=== PATIENT | female | born 1940 | race Caucasian/White ===

== ENCOUNTER 2024-03-25 14:52 | Inpatient (IN) | payer MEDICARE, BC, SELFPAY ==
[2024-03-24 11:55] VITALS: BP 127/95; BMI 22.0
[2024-03-24 12:17] LABS: % Basophils 0.8 % (0-2); % Eosinophils 2.9 % (0-6); % Immature Granulocytes 0.3 % (0-0.5); % Lymphocytes 24.8 % (20.5-51.1); % Neutrophils 61.2 % (42.2-75.2); Absolute Basophils 0.1 10^3/uL (0-0.2); Absolute Eosinophils 0.2 10^3/uL (0-0.7); Absolute Lymphocytes 1.6 10^3/uL (1.2-3.4); Absolute Monocytes 0.7 10^3/uL (0.1-0.6); Hematocrit 40.8 % (37.0-47.0); Hemoglobin 13.9 g/dL (12.0-16.0); Mean Corp Hgb Conc. 34.1 g/dL (33.0-37.0); Mean Corpuscular Hgb 29.6 pg (27.0-31.0); Mean Platelet Volume 9.6 fL (7.4-10.4); Nucleated Red Blood Cells % 0 %; Platelet Count 254 10^3/uL (130-400); Red Blood Cell Count 4.69 10^6/uL (4.20-5.40); Red Cell Dist. Width 13.9 % (11.5-14.5); Urine Albumin 1+ (Neg - Trace); Urine Bilirubin 1+ (Negative); Urine Color Yellow; Urine Glucose Negative (Negative); Urine Ketone 1+ (Negative); Urine Leukocyte 2+ (Negative); Urine Nitrite Negative (Negative); Urine Occult Blood 2+ (Negative); Urine Specific Gravity 1.025 (<1.030); Urine Urobilinogen 1+ (Neg - 1+); White Blood Cell Count 6.5 10^3/uL (4.8-10.8)
[2024-03-24 12:19] LABS: Urine Character Slightly Cloudy (Clear)
[2024-03-24 12:27] LABS: Urine Mucus Moderate
[2024-03-24 12:29] LABS: Urine Bacteria Moderate (Negative); Urine White Cell >100 /HPF (0-5)
[2024-03-24 12:32] LABS: ALT (SGPT) 24 U/L (0-35); AST (SGOT) 35 U/L (14-36); Albumin 4.5 g/dl (3.5-5.0); Alkaline Phosphatase 135 U/L (38-126); Blood Urea Nitrogen 19 mg/dl (7-17); Calcium 9.4 mg/dl (8.4-10.2); Carbon Dioxide 24 mmol/L (22-30); Chloride 104 mmol/L (98-107); Estimated Creatinine Clearance 34 ml/min; Glucose 124 mg/dl (70-99); Potassium 4.2 mmol/L (3.5-5.1); Sodium 142 mmol/L (135-145); Total Bilirubin 1.9 mg/dl (0.2-1.3); Total Protein 7.2 g/dl (6.3-8.2); eGFR > 60.00
--- NOTE | 2024-03-24 12:45 | ED.GENMED ---
History of Present Illness
General
Chief Complaint: Weakness
Source: family and ambulance crew
Exam Limitations: dementia
Time Seen by Provider: 03/24/24 12:01
Nursing documentation reviewed up to this point in time: agreed with
History of Present Illness
History of Present Illness:
83-year-old female with history dementia presenting to the emergency department via EMS from home due to generalized weakness and fall this morning. Patient unable to contribute much to history given history of dementia. According to patient's
she lives with�patient was walking using her walker from the bathroom back to the bedroom when she fell and struck her head on the hardwood floor. There was no loss of conscious. Patient did stay on the ground until EMS arrived.
Patient has been more weak than usual over the past 10 days per patient's . She did have a telehealth appointment with a doctor yesterday who prescribed her Macrobid for a suspected UTI.
Patient denies any chest pain, shortness of breath, cough or abdominal pain.
Past History
Past History
ED Past Medical History: HTN
ED Past Surgical History: None
Social History
Tobacco: Non-smoker
Alcohol: None
Review of Systems
Review of Systems
Allergies reviewed?: Yes
All Other Systems: ROS reviewed and negative except as documented in HPI and ROS
Phy Exam
Physical Exam
Physical Exam:
Vitals: Patient's vital signs are stable. Afebrile
General: Patient is frail appearing. No apparent distress.
Skin: Warm and dry.
Head: Normocephalic. Contusion to left frontal scalp.
Eyes: Sclera nonicteric. EOMs intact. No nystagmus.
Throat: Dry mucous membranes. Protecting airway
Neck: Normal ROM, no cervical spine tenderness, no meningismus. No midline spinal tenderness.
Cardiac: Regular rate and rhythm, no murmurs.
Pulm: Normal respiratory effort, no wheezes, rales, rhonchi heard on exam.
Abdomen: Abdomen soft. No abdominal tenderness. No rebound tenderness or guarding.
Extremities: Bilateral upper and lower extremities atraumatic and nontender with full range of motion. No evidence of cyanosis or edema. Palpable DP pulses bilaterally
Neuro: AAOx to person and place, not time. No focal neurologic deficits. Follows commands.
Psychiatric: Normal affect.
Course
Orders/Labs/Results
Orders:
Orders
03/24/24 11:51
Electrocardiogram (*1) Urgent
Reason for Study: Fatigue / Weakness
03/24/24 11:54
EKG- Treatment ONCE
03/24/24 12:07
Complete Blood Count/With Diff Urgent
Comprehensive Metabolic Panel Urgent
UA Reflex to Culture [Urinalysis Reflex To Culture] Urgent
Date Specimen was Collected: 03/24/24
Time Specimen was Collected: 11:54
Urine Microscopic Reflex Cult Urgent
Urine Culture Urgent
MARLEE Source: U
Specimen Description:
Date Specimen was Collected: 03/24/24
Time Specimen was Collected: 11:54
03/24/24 12:28
CT Head W/o Iv Contrast Urgent
Comment:
Reason For Exam: unwitnessed fall, head strike
0.9% Sodium Chloride 1000 ml [Nss] 1,000 ml IV BOLUS
03/24/24 12:29
Cervical Spine wo Contrast CT [CT Cervical Spine W/o Iv Contr] Urgent
Comment:
Reason For Exam: unwitnessed fall
03/24/24 12:45
COVID-19 Antigen Urgent
Source: Nasal Swab
Influenza A+B Rapid Molecular Urgent
MARLEE Source: Nasal Swab
Specimen Description:
03/24/24 14:37
CefTRIAXone [Rocephin] 1,000 mg IV NOW STA
03/24/24 14:55
Admit/Transfer Patient As Directed
Co-Sign Provider:
Level of Care: Observation services
Assign to:: Medical/Surgical
Physician / Group: alex
Diagnosis: metabolic encephelopathy uti
PRN Pain Medication Management As Directed
May give lesser potent ordered pain med per pt: Yes
preference::
Protocol:: Medication orders for pain may be administered in a
manner that supports deferring to patient preference
when the pt is:
- Requesting an ordered lesser potent pain medication.
Least to most potent pain medications are defined
as: acetaminophen < NSAID < tramadol < opioids
(morphine, oxycodone, hydromorphone).
- Requesting a lesser dose of the same medication IF
ORDERED.
- Requesting a less intrusive route of administration
if both routes are prescribed by the provider (PO <
IV).
03/24/24 14:56
Code Status As Directed
Resuscitation Status: Full Code
03/24/24 Dinner
Regular
At Your Request: Non-Participating
03/24/24 16:05
0.9% Sodium Chloride 1000 ml [Nss] 1,000 ml IV 70 mls/hr
03/24/24 16:05
Activity As Directed
Activity Level: As Tolerated
Vital Signs As Directed
Frequency: Per unit guidelines
DX Deep Vein Thrombosis Video Routine
03/24/24 20:00
Heparin 5,000 units SC Q12
Oxybutynin Chloride [Ditropan] 2.5 mg PO BID
03/25/24 06:00
Complete Blood Count/With Diff IN AM
Comprehensive Metabolic Panel IN AM
03/25/24 08:00
Multivitamin [Theragran] 1 tablet PO DAILY
Solifenacin Succinate [Vesicare] 5 mg PO DAILY
03/25/24 12:00
CefTRIAXone [Rocephin] 1,000 mg IV Q24H
Abnormal Lab Results
03/24/24
12:07
Absolute Monos (auto) 0.7 H 10^3/uL
(0.1-0.6)
Monocytes % 10.0 H %
(1.7-9.3)
BUN 19 H mg/dl
(7-17)
Glucose 124 H mg/dl
(70-99)
Total Bilirubin 1.9 H mg/dl
(0.2-1.3)
Alkaline Phosphatase 135 H U/L
(38-126)
Urine Ketones 1+ A
(Negative)
Ur Occult Blood Reflex 2+ A
(Negative)
Urine Bilirubin 1+ A
(Negative)
Leukocyte Esterase Rfl 2+ A
(Negative)
Urine RBC 7-10 A /HPF
(0-2)
Urine WBC (Reflex) >100 A /HPF
(0-5)
Urine Bacteria (Reflex) Moderate A
(Negative)
Urine Albumin (Reflex) 1+ A
(Neg - Trace)
03/24/24 12:07
03/24/24 12:07
Vital Signs
Initial and Last Documented VS:
Initial Vital Signs
Temp Pulse Resp BP Pulse Ox
97.9 F 84 16 127/95 98
03/24/24 11:55 03/24/24 11:55 03/24/24 11:55 03/24/24 11:55 03/24/24 11:55
Last Documented Vital Signs
Temp Pulse Resp BP Pulse Ox
98.2 F 98 16 176/95 96
03/24/24 16:13 03/24/24 16:13 03/24/24 16:13 03/24/24 16:13 03/24/24 16:13
MDM/Problems Addressed
Differential Diagnosis Includes:
Not limited to: Dehydration, viral illness, UTI, cardiac arrhythmia, contusion, intraparenchymal hemorrhage, etc.
MDM/Problems Addressed:
83-year-old female presenting from home following mechanical fall at home secondary to significant weakness. Currently being treated for UTI. Patient confused at baseline. No fever, chest pain, or shortness of breath. Vital stable. Patient is
afebrile. Physical exam as above. She has a notable contusion to her left frontal scalp. No cervical spine tenderness. No midline spinal tenderness. Mucous membranes are very dry. Abdomen is soft and nontender. No evidence of traumatic
injuries to extremities. Will obtain basic labs, urinalysis given known UTI. Will check viral panel and EKG. Will check cervical spine and head CT to rule out traumatic injury sustained during fall today. Will give IV fluids will closely monitor
and reassess.
Chronic conditions affecting care:
Dementia
Acute Exacerbation and/or Progression of Chronic Illness:
N/A
*Radiology
Radiology exam reviewed: preliminary read by ED provider and radiology read reviewed
*Pulse Oximetry
Patient hypoxic: no
*EKG
Interpreted by ED Provider?: Yes
EKG Intrepretation Date: 03/24/24
Interpretation: normal
Comparison EKG: no changes
Heart Rate: 84
Rate: normal
Rhythm: sinus
[place]: normal axis
Interval: normal interval
QRS Pattern: normal QRS
Ischemia: no ischemia
*Area Development Manager Interpretation
Rate: normal
Interpretation: normal
Heart Rate: 80
Rhythm: sinus
*Critical Care Note
Total Time (30-74mins, 75-104mins- exclusive of procedures): Not Applicable
Patient Management
Discussion with other providers: Hospitalist
Escalation/DeEscalation of care consider admission/obs:
Admit for IV antibiotics
Update Note
Update Note:
Update: EKG shows normal sinus rhythm without any acute ischemic changes. Labs reviewed. No leukocytosis. Chemistry without any clinically significant abnormalities. Viral swab negative. Urine does show signs of UTI. CT head and cervical spine
without any acute abnormalities. Discussed findings with patient's . Recommended admission although possibly discharge with new antibiotics was discussed. Given patient significant level of weakness and persistent UTI despite oral
antibiotics�patient will be admitted to the hospital service for IV antibiotics and hydration. Patient given dose of Rocephin in emergency department. Patient excepted to hospitalist service in stable condition.
ED Attending Note
-
Portions of this chart may have been created with voice recognition software.� Occasional wrong word or��sound alike� substitutions may have occurred due to the inherent limitations of voice recognition software.
Discharge Plan
Departure
Patient Disposition: Admit
Date of Disposition: 03/24/24
Time of Disposition: 14:38
Presentation/result/management discussed w/ accepting MD/DO: Hospitalist
Discharge Problem:
Acute UTI, Weakness
Interventions
Interventions:
*Risk Screen - Suicide Last Done: 03/24/24 11:55
*General Assessment Last Done: 03/24/24 11:55
*Neglect/Abuse Screening Last Done: 03/24/24 11:55
ED- Fall Risk Assessment Last Done: 03/24/24 12:03
*ED COVID-19 Vaccine History Last Done: 03/24/24 11:55
*Nursing Disposition Last Done: 03/24/24 15:57
ED- Cardiac Assessment Last Done: 03/24/24 12:03
ED- Neurological Assessment Last Done: 03/24/24 12:03
ED- Pulmonary Assessment Last Done: 03/24/24 12:03
Discharge Date and Time
Discharge Date/Time: 03/24/24 15:58
[2024-03-24] MEDS: NSS 1000 IV ×2 (12:47→17:11)
[2024-03-24 13:00] VITALS: BP 142/78
[2024-03-24 13:16] LABS: COVID-19 Antigen Negative (Negative)
--- NOTE | 2024-03-24 13:56 | PHANOTE ---
MED REC NOTE- SPOKE TO PATIENT WHO DOES NOT KNOW HER MEDICATION, SPOUSE AND FAMILY IN ROOM DOES NOT KNOW MEDICATION PATIENT ONLY FILLING OXYBUYNIN WE 5MG DAILY BUT SPOUSE SAID THERE 3 BOTTLES AT HOME, FAMILY WILLING TO GO HOME AN GET THEM IS PATIENT
GETS ADMIT
[2024-03-24 14:05] VITALS: BP 148/80
[2024-03-24] MEDS: ROCEPHIN 1000 MG IV (14:51)
--- NOTE | 2024-03-24 14:58 | HPS.HSE ---
Family Physician
-
Family Physician: Andres Delaney
Chief Complaint
-
weakness, confusion
History of Present Illness
83-year-old female past medical history of dementia presenting to the emergency room for generalized weakness and fall this morning. Unable to contribute much history due to dementia. As per patient's she was walking using her walker from
the bathroom back to the bedroom when she fell and struck her head on the hardwood floor. No loss of consciousness. She was on the ground until EMS arrived.
He has been more weak than usual over the past week. She had a telehealth appoint with the doctor yesterday who prescribed her Macrobid for suspected UTI. states that she had some left-sided abdominal pain but denies any pain currently.
No urinary symptoms. Denies chest pain, shortness of breath, cough or abdominal pain or diarrhea or vomiting.
Does not smoke or drink alcohol.
Medical History
Past Medical History
Past Medical History: Reports Other (dementia , overactive bladder )
Past Surgical History: Reports None
Social History
Tobacco: Non-smoker
Alcohol: None
Drug: None
Family History
Family History: Not pertinent
Allergies / Home Medications
Allergies reflects when Allergies were last updated in [employer].
Home Medications with original date entered in [employer]
Allergy/Medication List:
Allergies
Allergy/AdvReac Type Severity Reaction Status Date / Time
No Known Allergies Allergy Unverified 10/06/20 17:10
Home Medications
nitrofurantoin macrocrystal 100 mg capsule 100 mg PO BID 03/24/24
omega [id number] oil 1,000 mg (120 mg-180 mg) capsule (Fish Oil) 1 cap PO DAILY 03/24/24
oxybutynin chloride 5 mg tablet,extended release 24 hr 5 mg PO DAILY 03/24/24
solifenacin 5 mg tablet (Vesicare) 5 mg PO DAILY 03/24/24
therapeutic multivitamin 1 tab PO DAILY 03/24/24
Review of Systems
-
History Source: Patient
A 12 point ROS was completed and negative except as noted: Yes
Constitutional: Reports No Symptoms
EENT: Reports No Symptoms
Respiratory: Reports No Symptoms
Cardiac: Reports No Symptoms
Abdomen/GI: Reports No Symptoms
: Reports No Symptoms
Musculoskeletal: Reports No Symptoms
Skin: Reports No Symptoms
Neurological: Reports No Symptoms
Endocrine: Reports No Symptoms
Hematologic/Lymphatic: Reports No Symptoms
Psych: Reports No Symptoms
Physical Exam
Vital Signs
Vital Signs
Temp Pulse Resp BP Pulse Ox
97.9 F 86 16 148/80 99
03/24/24 11:55 03/24/24 14:45 03/24/24 14:45 03/24/24 14:05 03/24/24 14:45
Physical Exam
General: Well Developed, Well Nourished and No Apparent Distress
HEENT: NormoCephalic, Moist mucous membranes and Atraumatic
Respiratory: Clear
Cardiac: S1/S2 and Regular Rhythm; No Murmur or Rub
GI: Soft, Non Tender, Non Distended and Normal Bowel Sounds; No Organomegaly
Rectal: Deferred by Provider
Musculoskeletal: No Clubbing, No Cyanosis and No Edema
Skin: No Rash
Neuro: Nonfocal/grossly intact
Laboratory Results
-
03/24/24 12:07
03/24/24 12:07
Laboratory Results
Total Bilirubin 1.9 mg/dl (0.2-1.3) H 03/24/24 12:07
AST 35 U/L (14-36) 03/24/24 12:07
ALT 24 U/L (0-35) 03/24/24 12:07
Alkaline Phosphatase 135 U/L (38-126) H 03/24/24 12:07
Data Reviewed
-
Lab Data: Labs Reviewed by me
Old Records: Reviewed
Impression/Plan
-
IMPRESSION:
PLAN:
# Metabolic encephalopathy secondary to UTI
-No abdominal tenderness currently
-Urinalysis shows greater than 100 WBC, moderate bacteria, slightly cloudy urine, +2 leukocyte Estrace
-IV fluids
-Urine culture
-Ceftriaxone
History of dementia
Overactive bladder
-Continue oxybutynin, Vesicare
Full code
DVT prophylaxis�heparin
Regular diet
[2024-03-24 15:00] VITALS: BP 162/71
[2024-03-24 16:13] VITALS: BP 176/95
--- NOTE | 2024-03-24 19:19 | PTCARENOTE ---
Pt arrived to floor from ED. Pulled on to bed from stretcher. Confused, O x1. and son at bedside to answer admission questions and review med rec. IVF started as ordered via RAC. Bed alarm in place, bed in lowest position, call schultz in reach.
[2024-03-24] MEDS: HEPARIN 5000 UNITS SC (21:40)
[2024-03-24] MEDS: DESENEX/MITRAZOL/ZEASORB 1 APPLIC TOPICAL (21:41)
[2024-03-24 23:36] VITALS: BP 172/88
[2024-03-25 08:00] LABS: % Basophils 0.6 % (0-2); % Eosinophils 3.6 % (0-6); % Immature Granulocytes 1.6 % (0-0.5); % Lymphocytes 22.9 % (20.5-51.1); % Neutrophils 60.3 % (42.2-75.2); Absolute Eosinophils 0.3 10^3/uL (0-0.7); Absolute Immature Granulocytes 0.1 10^3/uL (0-0.05); Absolute Lymphocytes 1.6 10^3/uL (1.2-3.4); Absolute Monocytes 0.8 10^3/uL (0.1-0.6); Absolute Neutrophils 4.3 10^3/uL (1.4-6.5); Hematocrit 38.9 % (37.0-47.0); Hemoglobin 13.2 g/dL (12.0-16.0); Mean Corp Hgb Conc. 33.9 g/dL (33.0-37.0); Mean Corpuscular Hgb 29.2 pg (27.0-31.0); Mean Corpuscular Volume 86.1 fL (81.0-99.0); Mean Platelet Volume 9.5 fL (7.4-10.4); Nucleated Red Blood Cells % 0 %; Platelet Count 240 10^3/uL (130-400); Red Blood Cell Count 4.52 10^6/uL (4.20-5.40); Red Cell Dist. Width 13.7 % (11.5-14.5)
[2024-03-25 09:13] LABS: ALT (SGPT) 23 U/L (0-35); AST (SGOT) 29 U/L (14-36); Alkaline Phosphatase 131 U/L (38-126); Blood Urea Nitrogen 10 mg/dl (7-17); Calcium 8.8 mg/dl (8.4-10.2); Carbon Dioxide 21 mmol/L (22-30); Chloride 107 mmol/L (98-107); Estimated Creatinine Clearance 48 ml/min; Glucose 107 mg/dl (70-99); Potassium 3.7 mmol/L (3.5-5.1); Sodium 140 mmol/L (135-145); Total Bilirubin 1.8 mg/dl (0.2-1.3); Total Protein 6.5 g/dl (6.3-8.2); eGFR > 60.00
[2024-03-25] MEDS: HEPARIN 5000 UNITS SC ×2 (10:41→20:33)
[2024-03-25] MEDS: DESENEX/MITRAZOL/ZEASORB 1 APPLIC TOPICAL ×2 (10:41→20:34)
[2024-03-25] MEDS: THERAGRAN PO (10:42)
[2024-03-25 10:52] VITALS: BP 155/87; PULSE 89; O2SAT 96
[2024-03-25 11:06] VITALS: BP 155/87; PULSE 90; O2SAT 96
--- NOTE | 2024-03-25 11:56 | W.PN.HOSP.TC ---
Today's Communication/Plan
-
Continue with IVF
Add PRN hydralazine
Monitor for agitation
PT/OT
Assessment / Plan
Assessment / Plan
Physical Exam
General: Well Developed, Well Nourished and No Apparent Distress
HEENT: NormoCephalic, Moist mucous membranes and Atraumatic
Respiratory: Clear
Cardiac: S1/S2 and Regular Rhythm; No Murmur or Rub
GI: Soft, Non Tender, Non Distended and Normal Bowel Sounds; No Organomegaly
Rectal: Deferred by Provider
Musculoskeletal: No Clubbing, No Cyanosis and No Edema
Skin: No Rash
Neuro: Nonfocal/grossly intact
# Metabolic encephalopathy secondary to UTI
-No abdominal tenderness currently
-Urinalysis shows greater than 100 WBC, moderate bacteria, slightly cloudy urine, +2 leukocyte Estrace
-IV fluids
-Urine culture is pending
- No leukocytosis
- No fevers.
- Negative COVID & Flu screen.
-Ceftriaxone IV for now.
- Normal renal function.
# Clinical dehydration, dry MM this morning
Continue with IVF
Encourage oral intake
Consult nutrition
# History of Advanced dementia/ Aggressive behavior due to dementia
Mild agitation/ confusion noted
Will continue to treat dehydration
CT head no acute findings, diffuse cortical atrophy with nonspecific white matter changes.
Order PT/ OT
# Borderline high SBP
No history of hypertension
will add PRN low dose hydralazine.
# Incidental finding by cervical CT: 1.5 cm low-attenuation/cystic lesion in the left lobe of the thyroid. Elective Tyroid Ultrasound could be obtained for more complete evaluation as OP. Normal calcium level, no neck tenderness on exam.
# Overactive bladder
-Continue oxybutynin, Vesicare
Full code
DVT prophylaxis�heparin
Regular diet
Total time spent to see the patient, examine the patient, review data and lab results, discuss treatment plan with patient, nursing staff around 55 minutes
Anticipated Discharge: Within 24 hours
Subjective/Interval History
-
Date of Service: March 25, 2024
Mild agitation this morning
No fevers
Objective Data
-
Labs:
Laboratory Results
03/25/24
07:30
WBC 7.0
Hgb 13.2
Hct 38.9
Plt Count 240
Sodium 140
Potassium 3.7
Chloride 107
Carbon Dioxide 21 L
BUN 10
Creatinine 0.7
Glucose 107 H
Calcium 8.8
Total Bilirubin 1.8 H
AST 29
ALT 23
Alkaline Phosphatase 131 H
Vital Signs:
Vital Signs
Temp Pulse Resp BP Pulse Ox
98.0 F 95 16 172/88 95
03/24/24 23:36 03/24/24 23:36 03/24/24 23:36 03/24/24 23:36 03/24/24 23:36
I&O
03/24/24 03/25/24 03/26/24
06:59 06:59 06:59
Intake Total 120 / 220 100 / 100
Balance 120 / 220 100 / 100
[2024-03-25] MEDS: STERILE WATER FOR INJECTION 10 ML IV (12:50)
[2024-03-25] MEDS: ROCEPHIN 1000 MG IV (12:50)
[2024-03-25] MEDS: APRESOLINE 5 MG PO (13:04)
[2024-03-25] MEDS: NSS 1000 IV (13:08)
--- NOTE | 2024-03-25 13:22 | CM ---
Addendum entered by Guy Alarcon 03/25/24 13:41:
Per MD level of care has been changed to inpatient. IMM reviewed,with pt's and son, signed, [facility] letter placed on chart, pt has a copy.
Original Note:
CM following re: discharge planning.
Reviewed pt's chart, met with pt. Pt's and son at bedside.
Pt is an 83 year old female, admitted with OBS status and primary dx of Metabolic encephalopathy. OBS status explained to pt's and son, declined to sign, [facility] letter placed on chart, pt has a copy.
Pt is not a great historian due to Dementia, information obtained from pt's and son. Pt lives with 2SH, 1 step to enter, has 3 supportive children. Per , pt ambulates with a walker, known to [facility] and was at [facility]. Pt's
stated he provides 24/7 care for his spouse at home and per pt has been very weak in the past 2 weeks and was not able to walk independently.
PT and OT will evaluate the pt to determine a level of care at discharge. Pt's stated he will prefer [facility] if rehab recommended.
PCP: Andres Delaney
Pharmacy: [facility]
D/C plan: most likely [facility] for a short term rehab. PT and OT to confirm the plan.
CM will follow with discharge plan updates as hospitalization progresses
[2024-03-25 15:45] VITALS: BP 155/89
[2024-03-25] MEDS: NSS IV (20:35)
[2024-03-25 23:24] VITALS: BP 156/97
[2024-03-26 07:15] VITALS: BP 143/94
[2024-03-26 08:42] LABS: Hematocrit 37.1 % (37.0-47.0); Hemoglobin 12.7 g/dL (12.0-16.0); Mean Corp Hgb Conc. 34.2 g/dL (33.0-37.0); Mean Corpuscular Hgb 29.8 pg (27.0-31.0); Mean Corpuscular Volume 87.1 fL (81.0-99.0); Mean Platelet Volume 9.6 fL (7.4-10.4); Platelet Count 227 10^3/uL (130-400); Red Blood Cell Count 4.26 10^6/uL (4.20-5.40); Red Cell Dist. Width 13.9 % (11.5-14.5); White Blood Cell Count 6.2 10^3/uL (4.8-10.8)
[2024-03-26] MEDS: NSS 1000 IV (08:53)
[2024-03-26] MEDS: HEPARIN SC ×2 (08:56→20:42)
[2024-03-26] MEDS: THERAGRAN PO (08:56)
[2024-03-26] MEDS: DESENEX/MITRAZOL/ZEASORB 1 APPLIC TOPICAL ×2 (08:56→20:42)
[2024-03-26 09:20] LABS: Blood Urea Nitrogen 11 mg/dl (7-17); Calcium 8.9 mg/dl (8.4-10.2); Carbon Dioxide 25 mmol/L (22-30); Chloride 106 mmol/L (98-107); Estimated Creatinine Clearance 42 ml/min; Glucose 99 mg/dl (70-99); Potassium 3.8 mmol/L (3.5-5.1); Sodium 140 mmol/L (135-145); eGFR > 60.00
[2024-03-26] MEDS: STERILE WATER FOR INJECTION 10 ML IV (11:34)
[2024-03-26] MEDS: ROCEPHIN 1000 MG IV (11:35)
--- NOTE | 2024-03-26 14:11 | W.PN.HOSP.TC ---
Today's Communication/Plan
-
F/u TFTs
RUQ Sono
Can Cont abx for now
Assessment / Plan
Assessment / Plan
Physical Exam
General: Well Developed, Well Nourished and No Apparent Distress
HEENT: NormoCephalic, Moist mucous membranes and Atraumatic
Respiratory: Clear
Cardiac: S1/S2 and Regular Rhythm; No Murmur or Rub
GI: Soft, Non Tender, Non Distended and Normal Bowel Sounds; No Organomegaly
Rectal: Deferred by Provider
Musculoskeletal: No Clubbing, No Cyanosis and No Edema
Skin: No Rash
Neuro: Nonfocal/grossly intact
# Acute on Chronic Metabolic encephalopathy
-unclear etiology although suspect dementia
-f/u ruq sono
-no evidence of UTI
- No leukocytosis
- No fevers.
- Negative COVID & Flu screen.
-Ceftriaxone IV for now.
- Normal renal function.
-F/u TFTs
# History of Advanced dementia/ Aggressive behavior due to dementia
Mild agitation/ confusion noted
Will continue to treat dehydration
CT head no acute findings, diffuse cortical atrophy with nonspecific white matter changes.
Order PT/ OT
#Transaminitis
� Follow-up right upper quadrant sono
# Incidental finding by cervical CT: 1.5 cm low-attenuation/cystic lesion in the left lobe of the thyroid. Elective Tyroid Ultrasound could be obtained for more complete evaluation as OP. Normal calcium level, no neck tenderness on exam.
-F/u TFTs
# Overactive bladder
-Continue oxybutynin, Vesicare
Full code
DVT prophylaxis�heparin
Regular diet
Total time spent on today's encounter was 50 minutes which included time spent in counseling the patient/family regarding diagnosis and treatment plan as listed above, goals of care, and symptom management. Case was discussed with nursing staff,
specialists, and care coordinators/case management. All labs and imaging personally reviewed by me. Remainder the time spent in detailed review of previous records, lab data, imaging, and other medical provider documentation.
Anticipated Discharge: 24 - 48 hours
Subjective/Interval History
-
Date of Service: March 26, 2024
No acute events overnight
Objective Data
-
Labs:
Laboratory Results
03/26/24
08:14
WBC 6.2
Hgb 12.7
Hct 37.1
Plt Count 227
Sodium 140
Potassium 3.8
Chloride 106
Carbon Dioxide 25
BUN 11
Creatinine 0.8
Glucose 99
Calcium 8.9
Vital Signs:
Vital Signs
Temp Pulse Resp BP Pulse Ox
97.9 F 92 16 143/94 97
03/26/24 07:15 03/26/24 07:15 03/26/24 07:15 03/26/24 07:15 03/26/24 07:15
I&O
03/25/24 03/26/24 03/27/24
06:59 06:59 06:59
Intake Total 120 / 220 1180 / 1180
Balance 120 / 220 1180 / 1180
Review of Systems
-
History Source: Patient
All other systems: Not reviewed unless documented
Data Reviewed
-
CT Scan: Image personally visualized and interpreted and Report Reviewed by me
Labs: Labs Reviewed by me
[2024-03-26 15:10] VITALS: BP 154/97
--- NOTE | 2024-03-26 15:23 | CM ---
PT OT indicated SNG .
Met with pt and in room .Reviewed PT OT evals.
requested referral to [facility].Left TT with [facility] covering [place] today.
[facility] referral in care port .
Pt has medicare
PLAN To [facility] if accepted
[2024-03-26 16:27] LABS: TSH Reflex To Free T4 4.06 uIU/ml (0.47-4.68)
[2024-03-27 01:33] VITALS: BP 126/88
[2024-03-27 07:10] LABS: Blood Urea Nitrogen 12 mg/dl (7-17); Calcium 8.9 mg/dl (8.4-10.2); Carbon Dioxide 15 mmol/L (22-30); Chloride 106 mmol/L (98-107); Estimated Creatinine Clearance 48 ml/min; Glucose 94 mg/dl (70-99); Potassium 3.4 mmol/L (3.5-5.1); Sodium 141 mmol/L (135-145); eGFR > 60.00
[2024-03-27 07:56] LABS: Hematocrit 39.5 % (37.0-47.0); Hemoglobin 13.4 g/dL (12.0-16.0); Mean Corp Hgb Conc. 33.9 g/dL (33.0-37.0); Mean Corpuscular Hgb 29.2 pg (27.0-31.0); Mean Corpuscular Volume 86.1 fL (81.0-99.0); Mean Platelet Volume 10.2 fL (7.4-10.4); Platelet Count 277 10^3/uL (130-400); Red Blood Cell Count 4.59 10^6/uL (4.20-5.40); Red Cell Dist. Width 13.6 % (11.5-14.5); White Blood Cell Count 9.5 10^3/uL (4.8-10.8)
[2024-03-27] MEDS: DESENEX/MITRAZOL/ZEASORB 1 APPLIC TOPICAL ×2 (08:18→19:47)
[2024-03-27 08:19] VITALS: BP 149/115
[2024-03-27] MEDS: HEPARIN SC (08:19)
[2024-03-27] MEDS: THERAGRAN PO (08:19)
[2024-03-27] MEDS: KCL ELIXIR 40 MEQ PO (09:11)
[2024-03-27 09:22] LABS: ALT (SGPT) 21 U/L (0-35); AST (SGOT) 26 U/L (14-36); Albumin 3.9 g/dl (3.5-5.0); Alkaline Phosphatase 145 U/L (38-126); Direct Bilirubin 0.3 mg/dl (0.0-0.4); Total Bilirubin 1.7 mg/dl (0.2-1.3); Total Protein 6.4 g/dl (6.3-8.2)
[2024-03-27] MEDS: ROCEPHIN 1000 MG IV (12:09)
[2024-03-27] MEDS: STERILE WATER FOR INJECTION 10 ML IV (12:09)
--- NOTE | 2024-03-27 13:34 | W.PN.HOSP.TC ---
Today's Communication/Plan
-
MR Brain
MRI abd/MRCP
Stop oxybutynin
Assessment / Plan
Assessment / Plan
Physical Exam
General: Well Developed, Well Nourished and No Apparent Distress
HEENT: NormoCephalic, Moist mucous membranes and Atraumatic
Respiratory: Clear
Cardiac: S1/S2 and Regular Rhythm; No Murmur or Rub
GI: Soft, Non Tender, Non Distended and Normal Bowel Sounds; No Organomegaly
Rectal: Deferred by Provider
Musculoskeletal: No Clubbing, No Cyanosis and No Edema
Skin: No Rash
Neuro: Nonfocal/grossly intact
# Acute on Chronic Metabolic encephalopathy
-unclear etiology as this change is abrupt over the last week; no obvious source of infection
-f/u ruq sono : Probable mild intrahepatic biliary dilation. Increased echogenicity of portal triads, nonspecific finding. No suspicious focal hepatic lesion identified
-R/o infection
-MRI Abd w/wo and MRCP
-MRI brain
-no evidence of UTI
-Stop Oxybutynin - can cause confusion
- No leukocytosis
- No fevers.
- Negative COVID & Flu screen.
-Ceftriaxone IV for now.
- Normal renal function.
-TSH WNL
# History of Advanced dementia/ Aggressive behavior due to dementia
Mild agitation/ confusion noted
Will continue to treat dehydration
CT head no acute findings, diffuse cortical atrophy with nonspecific white matter changes.
Order PT/ OT
#Transaminitis
� Probable mild intrahepatic biliary dilation. Increased echogenicity of portal triads, nonspecific finding. No suspicious focal hepatic lesion identified
--MRI Abd w/wo and MRCP
# Incidental finding by cervical CT: 1.5 cm low-attenuation/cystic lesion in the left lobe of the thyroid. Elective Tyroid Ultrasound could be obtained for more complete evaluation as OP. Normal calcium level, no neck tenderness on exam.
-TSH WNL
#Hypokalemia
-monitor and replete
# Overactive bladder
-Stop oxybutynin with confusion
- Vesicare
Full code
DVT prophylaxis�heparin
Regular diet
Total time spent on today's encounter was 53 minutes which included time spent in counseling the patient/family regarding diagnosis and treatment plan as listed above, goals of care, and symptom management. Case was discussed with nursing staff,
specialists, and care coordinators/case management. All labs and imaging personally reviewed by me. Remainder the time spent in detailed review of previous records, lab data, imaging, and other medical provider documentation.
Anticipated Discharge: > 48 hours
Subjective/Interval History
-
Date of Service: March 27, 2024
still altered
Objective Data
-
Labs:
Laboratory Results
03/27/24
05:18
WBC 9.5
Hgb 13.4
Hct 39.5
Plt Count 277 D
Sodium 141
Potassium 3.4 L
Chloride 106
Carbon Dioxide 15 L
BUN 12
Creatinine 0.7
Glucose 94
Calcium 8.9
Total Bilirubin 1.7 H
AST 26
ALT 21
Alkaline Phosphatase 145 H
Vital Signs:
Vital Signs
Temp Pulse Resp BP Pulse Ox
98.0 F 117 18 149/115 93
03/27/24 08:19 03/27/24 08:19 03/27/24 08:19 03/27/24 08:19 03/27/24 08:19
I&O
03/26/24 03/27/24 03/28/24
06:59 06:59 06:59
Intake Total 1180 / 1180 360 / 480 120 / 120
Balance 1180 / 1180 360 / 480 120 / 120
Review of Systems
-
History Source: Patient
All other systems: Not reviewed unless documented
Data Reviewed
-
CT Scan: Report Reviewed by me
Ultrasound: Report Reviewed by me
Labs: Labs Reviewed by me
[2024-03-27 15:49] VITALS: BP 141/86
[2024-03-27 16:00] VITALS: BP 150/100; PULSE 101; O2SAT 95
[2024-03-27] MEDS: HEPARIN 5000 UNITS SC (19:46)
[2024-03-27 23:00] VITALS: BP 127/74
[2024-03-27] MEDS: ATIVAN 0.25 MG IV (23:06)
[2024-03-27] MEDS: NSS (PRESERVATIVE FREE) 0.125 ML IV (23:06)
[2024-03-28 05:44] LABS: Hematocrit 39.4 % (37.0-47.0); Hemoglobin 13.3 g/dL (12.0-16.0); Mean Corp Hgb Conc. 33.8 g/dL (33.0-37.0); Mean Corpuscular Hgb 29.4 pg (27.0-31.0); Mean Corpuscular Volume 87.2 fL (81.0-99.0); Mean Platelet Volume 9.7 fL (7.4-10.4); Platelet Count 258 10^3/uL (130-400); Red Blood Cell Count 4.52 10^6/uL (4.20-5.40); Red Cell Dist. Width 13.9 % (11.5-14.5); White Blood Cell Count 8.4 10^3/uL (4.8-10.8)
[2024-03-28 06:12] LABS: ALT (SGPT) 20 U/L (0-35); AST (SGOT) 23 U/L (14-36); Albumin 3.6 g/dl (3.5-5.0); Alkaline Phosphatase 119 U/L (38-126); Blood Urea Nitrogen 20 mg/dl (7-17); Calcium 9.2 mg/dl (8.4-10.2); Carbon Dioxide 22 mmol/L (22-30); Chloride 108 mmol/L (98-107); Estimated Creatinine Clearance 48 ml/min; Glucose 124 mg/dl (70-99); Potassium 3.7 mmol/L (3.5-5.1); Sodium 143 mmol/L (135-145); Total Bilirubin 1.2 mg/dl (0.2-1.3); Total Protein 6.1 g/dl (6.3-8.2); eGFR > 60.00
[2024-03-28 07:16] VITALS: BP 137/90
[2024-03-28] MEDS: HEPARIN 5000 UNITS SC ×2 (07:44→19:33)
[2024-03-28] MEDS: THERAGRAN PO (07:46)
[2024-03-28] MEDS: DESENEX/MITRAZOL/ZEASORB 1 APPLIC TOPICAL ×2 (07:46→19:31)
--- NOTE | 2024-03-28 12:13 | CM ---
Addendum entered by Mali Brasher 03/28/24 14:34:
[facility] not able to accept patient until her completes a Financial application in the event that patient needs a Alf Care Bed after SNF stay. CM spoke with via phone; he reported that he will go to [facility] this afternoon and
submit the financial application.
Original Note:
[facility] accepted Referral
Per Attending, patient is stable for discharge; left Voicemail for Bhavana Espinoza @ [facility] requesting bed availability status
Plan: Discharge to [facility] pending bed availability
--- NOTE | 2024-03-28 12:14 | W.PN.HOSP.TC ---
Today's Communication/Plan
-
worsening dementia - f/u outpt
can complete abx course although doubt infectious source
stop oxybutynin
DC to facility - unable to take care of patient due to worsening dementia
f/u lfts outpt if desired
Assessment / Plan
Assessment / Plan
Physical Exam
General: Well Developed, Well Nourished and No Apparent Distress
HEENT: NormoCephalic, Moist mucous membranes and Atraumatic
Respiratory: Clear
Cardiac: S1/S2 and Regular Rhythm; No Murmur or Rub
GI: Soft, Non Tender, Non Distended and Normal Bowel Sounds; No Organomegaly
Rectal: Deferred by Provider
Musculoskeletal: No Clubbing, No Cyanosis and No Edema
Skin: No Rash
Neuro: Nonfocal/grossly intact
# Acute on Chronic Metabolic encephalopathy
-appears to be worsening dementia over quite some type - not new
-f/u ruq sono : Probable mild intrahepatic biliary dilation. Increased echogenicity of portal triads, nonspecific finding. No suspicious focal hepatic lesion identified
-R/o infection
-MRI Abd w/wo and MRCP - neg for acute pathology
-MRI brain negative for acute pathology
-no evidence of UTI
-Stop Oxybutynin - can cause confusion
- No leukocytosis
- No fevers.
- Negative COVID & Flu screen.
-can complete abx course for now although doubt infectious source
- Normal renal function.
-TSH WNL
# History of Advanced dementia/ Aggressive behavior due to dementia
Mild agitation/ confusion noted
Will continue to treat dehydration
CT head no acute findings, diffuse cortical atrophy with nonspecific white matter changes.
Order PT/ OT
#Transaminitis
� Probable mild intrahepatic biliary dilation. Increased echogenicity of portal triads, nonspecific finding. No suspicious focal hepatic lesion identified
--MRI Abd w/wo and MRCP - neg
-f/u outpt
# Incidental finding by cervical CT: 1.5 cm low-attenuation/cystic lesion in the left lobe of the thyroid. Elective Tyroid Ultrasound could be obtained for more complete evaluation as OP. Normal calcium level, no neck tenderness on exam.
-TSH WNL
-f/u outpt
#Hypokalemia
-monitor and replete
# Overactive bladder
-Stop oxybutynin with confusion
- Vesicare
Full code
DVT prophylaxis�heparin
Regular diet
More than 30 minutes spent in discharge including
Final examination of the patient
Summarizing hospital stay
Instructions for continuing care to all relevant caregivers
Preparation of discharge records, prescriptions, and referral forms
Total time spent (37 in minutes):
Anticipated Discharge: Today
Subjective/Interval History
-
Date of Service: March 28, 2024
no changes
Objective Data
-
Labs:
Laboratory Results
03/28/24
05:26
WBC 8.4
Hgb 13.3
Hct 39.4
Plt Count 258
Sodium 143
Potassium 3.7
Chloride 108 H
Carbon Dioxide 22
BUN 20 H
Creatinine 0.7
Glucose 124 H
Calcium 9.2
Total Bilirubin 1.2
AST 23
ALT 20
Alkaline Phosphatase 119
Vital Signs:
Vital Signs
Temp Pulse Resp BP Pulse Ox
98.0 F 96 16 137/90 96
03/28/24 07:16 03/28/24 07:16 03/28/24 07:16 03/28/24 07:16 03/28/24 07:16
I&O
03/27/24 03/28/24 03/29/24
06:59 06:59 06:59
Intake Total 360 / 480 240 / 240 120 / 120
Balance 360 / 480 240 / 240 120 / 120
Review of Systems
-
History Source: Patient
All other systems: Not reviewed unless documented
Data Reviewed
-
CT Scan: Report Reviewed by me
Ultrasound: Report Reviewed by me
MRI: Report Reviewed by me
Labs: Labs Reviewed by me
--- NOTE | 2024-03-28 12:19 | W.DS.TRANS ---
DC Summary - Tube [employer]
-
Discharge Instructions:
Discharge Diagnosis/Procedures favor increased fluid/salt intake.
worsening dementia
Diet As tolerated
Activity As tolerated
Instructions:
Stand-Alone Forms:
Changes to Home Medications: Yes
Discharge Medications:
DC Medications w/original date entered in [facility]
omega 0-ipg-otd-fish oil 1,000 mg (120 mg-180 mg) capsule (Fish Oil) 1 cap PO DAILY Supplement 03/24/24
solifenacin 5 mg tablet (Vesicare) 5 mg PO DAILY Urinary Issue 03/24/24
therapeutic multivitamin 1 tab PO DAILY Supplement 03/24/24
cefdinir 300 mg capsule 300 mg PO Q12H 4 days #8 caps 03/28/24
miconazole nitrate 2 % topical powder (Miconazorb AF) 1 applic topical BID #0 grams 03/28/24
Home Medication Changes
cefdinir 300 mg capsule 300 mg PO Q12H 4 days #8 caps 03/28/24
miconazole nitrate 2 % topical powder (Miconazorb AF) 1 applic topical BID #0 grams 03/28/24
Pending Results: No
[2024-03-28] MEDS: ROCEPHIN 1000 MG IV (12:32)
[2024-03-28] MEDS: STERILE WATER FOR INJECTION 10 ML IV (12:32)
[2024-03-28 14:05] LABS: Folate > 20.0 ng/ml (2.76-20); Vitamin B12 855 pg/ml (239-931)
[2024-03-28 14:53] VITALS: BP 150/109
--- NOTE | 2024-03-28 15:00 | CHAP ---
Msgr. Huseyin Patel of [facility] in [place] anointed Georgette and gave her Holy Communion.
[2024-03-28 19:30] VITALS: BP 148/110
[2024-03-28] MEDS: LR 500 IV (19:31)
[2024-03-28] MEDS: TRANDATE 2.5 MG IV (20:25)
[2024-03-28 21:25] VITALS: BP 157/103
[2024-03-28] MEDS: OFIRMEV 100 IV (21:57)
[2024-03-28 22:03] LABS: % Basophils 0.5 % (0-2); % Eosinophils 0.5 % (0-6); % Immature Granulocytes 0.3 % (0-0.5); % Lymphocytes 9.1 % (20.5-51.1); % Monocytes 8.6 % (1.7-9.3); Absolute Basophils 0.1 10^3/uL (0-0.2); Absolute Eosinophils 0.1 10^3/uL (0-0.7); Absolute Neutrophils 9.3 10^3/uL (1.4-6.5); Hematocrit 39.1 % (37.0-47.0); Hemoglobin 13.6 g/dL (12.0-16.0); Mean Corp Hgb Conc. 34.8 g/dL (33.0-37.0); Mean Corpuscular Hgb 29.4 pg (27.0-31.0); Mean Corpuscular Volume 84.6 fL (81.0-99.0); Mean Platelet Volume 9.6 fL (7.4-10.4); Nucleated Red Blood Cells % 0 %; Platelet Count 281 10^3/uL (130-400); Red Blood Cell Count 4.62 10^6/uL (4.20-5.40); Red Cell Dist. Width 13.9 % (11.5-14.5); White Blood Cell Count 11.5 10^3/uL (4.8-10.8)
[2024-03-28 22:52] LABS: Blood Urea Nitrogen 19 mg/dl (7-17); Calcium 8.9 mg/dl (8.4-10.2); Carbon Dioxide 24 mmol/L (22-30); Chloride 107 mmol/L (98-107); Estimated Creatinine Clearance 56 ml/min; Glucose 157 mg/dl (70-99); Potassium 3.7 mmol/L (3.5-5.1); Sodium 143 mmol/L (135-145); eGFR > 60.00
[2024-03-28 23:06] VITALS: BP 157/97
--- NOTE | 2024-03-29 01:57 | PTCARENOTE ---
At start of shift, pt sustaining HR in 130s, BP elevated at 148/110. REINALDO Busch notified. Received order for bladder scan, 53mL.
STAT orders received for blood work and received x1 dose of labetalol, refer to [facility] for administration.
During rounds at 2100, pt warm to touch, rectal temperature checked 101.5, REINALDO Busch notified, refer to MAR for IV Tylenol administration
On reassessment, pt rectal temp 100.5, BP 157/97, HR 80s-90s.
Plan of care ongoing
[2024-03-29] MEDS: LEVAQUIN 100 IV ×2 (02:26→21:07)
[2024-03-29 03:00] VITALS: BP 130/65
[2024-03-29 06:54] LABS: Hematocrit 38.7 % (37.0-47.0); Hemoglobin 13.3 g/dL (12.0-16.0); Mean Corp Hgb Conc. 34.4 g/dL (33.0-37.0); Mean Corpuscular Hgb 30.1 pg (27.0-31.0); Mean Corpuscular Volume 87.6 fL (81.0-99.0); Mean Platelet Volume 9.7 fL (7.4-10.4); Platelet Count 262 10^3/uL (130-400); Red Blood Cell Count 4.42 10^6/uL (4.20-5.40); Red Cell Dist. Width 14.1 % (11.5-14.5); White Blood Cell Count 10.4 10^3/uL (4.8-10.8)
[2024-03-29 07:31] VITALS: BP 169/100
[2024-03-29 07:31] LABS: ALT (SGPT) 21 U/L (0-35); AST (SGOT) 26 U/L (14-36); Albumin 3.5 g/dl (3.5-5.0); Alkaline Phosphatase 117 U/L (38-126); Blood Urea Nitrogen 19 mg/dl (7-17); Calcium 9.1 mg/dl (8.4-10.2); Carbon Dioxide 26 mmol/L (22-30); Chloride 106 mmol/L (98-107); Estimated Creatinine Clearance 56 ml/min; Glucose 129 mg/dl (70-99); Potassium 4.1 mmol/L (3.5-5.1); Sodium 143 mmol/L (135-145); Total Bilirubin 1.2 mg/dl (0.2-1.3); Total Protein 6.1 g/dl (6.3-8.2); eGFR > 60.00
[2024-03-29] MEDS: HEPARIN 5000 UNITS SC ×2 (08:01→21:07)
[2024-03-29] MEDS: THERAGRAN PO (08:02)
[2024-03-29] MEDS: DESENEX/MITRAZOL/ZEASORB 1 APPLIC TOPICAL ×2 (08:02→21:11)
[2024-03-29] MEDS: STERILE WATER FOR INJECTION IV (08:06)
[2024-03-29 10:29] LABS: COVID-19 Antigen Negative (Negative)
[2024-03-29 11:04] VITALS: BP 149/82
[2024-03-29] MEDS: NORVASC 5 MG PO (11:08)
--- NOTE | 2024-03-29 11:25 | PTOTSP ---
Speech Language Pathology
Pt seen for clinical bedside swallow evaluation. RN reported inability to take drink from straw this morning secondary to cognitive status. present at bedside who reported pt is typically on regular solids/thin liquids with no difficulty
chewing or swallowing. P.O. trials of puree and thin liquids provided by who was at bedside. Attempted paul cracker, but pt immediately spitting out of mouth. No oral difficulty or overt signs of aspiration with puree or thin liquids.
Unable to assess solids at this time, but pt has been on regular solids since admission 03/24 with no reported difficulty. Will continue diet as is.
Recommend:
(1) Continue regular solids/thin liquids
(2) General aspiration precautions
(3) Meds crushed in puree as able
(4) VAULT WORKER to continue to follow, likely briefly to ensure tolerance of regular solids
--- NOTE | 2024-03-29 12:28 | HOSPNOTE ---
Spoke with spouse and he wishes for rehab and then will consider hospice. He does need some guidance about code status and would like to talk with Attending. The plan is for discharge to [facility] when a bed is available and then will consider
hospice after rehab.
--- NOTE | 2024-03-29 13:08 | CM ---
Addendum entered by Mali Brasher 03/29/24 16:40:
Plan: Discharge to [facility] with Hospice tomorrow morning via ambulance; forklift picker scheduled for 1145
Report #[phone]

Addendum entered by Mali Brasher 03/29/24 16:23:
Ambulance forklift picker scheduled for 1145 tomorrow, 03/30
Addendum entered by Mali Brasher 03/29/24 16:01:
Ambulance forklift picker requested for late morning tomorrow; Transport forms given to Accreditation Coordinator
Facility notified and agreeable with plan
Plan: Discharge to [facility] with Hospice tomorrow morning via ambulance
Original Note:
CM Consult for Hospice Care referral completed; referral sent to methods analyst business solutions consultant and via [facility]
Attending spoke with patient's Son; CM requested that he meet with patient's at patient's bedside
Met with patient's ; hospice options discussed; stated that he cannot take his home; prefers she go to [facility] for care;
Per Bhavana W @ [facility], financial application was approved for a semi private room @ $453 per day. Mr. Shankar was informed of out of pocket cost
Per Bhavana, bed will be available tomorrow
Plan: Discharge to [facility] with Hospice tomorrow via ambulance
--- NOTE | 2024-03-29 14:23 | W.PN.HOSP.TC ---
Today's Communication/Plan
-
[place]
Follow-up fever workup
Goals care conversation, hospice appropriate
DNR/DNI
Assessment / Plan
Assessment / Plan
Physical Exam
General: Well Developed, Well Nourished and No Apparent Distress
HEENT: NormoCephalic, Moist mucous membranes and Atraumatic
Respiratory: Clear
Cardiac: S1/S2 and Regular Rhythm; No Murmur or Rub
GI: Soft, Non Tender, Non Distended and Normal Bowel Sounds; No Organomegaly
Rectal: Deferred by Provider
Musculoskeletal: No Clubbing, No Cyanosis and No Edema
Skin: No Rash
Neuro: Nonfocal/grossly intact
# Acute on Chronic Metabolic encephalopathy
-appears to be worsening dementia over quite some type - not new
-f/u ruq sono : Probable mild intrahepatic biliary dilation. Increased echogenicity of portal triads, nonspecific finding. No suspicious focal hepatic lesion identified
-R/o infection
-MRI Abd w/wo and MRCP - neg for acute pathology
-MRI brain negative for acute pathology
-no evidence of UTI
-Stop Oxybutynin - can cause confusion
- No leukocytosis
- No fevers.
- Negative COVID & Flu screen.
-can complete abx course for now although doubt infectious source
- Normal renal function.
-TSH WNL
#Febrile episode
-no obvious source
�Follow-up blood cultures, urine
� I suspect this is secondary to aspiration versus viral illness
� SARS-CoV-2, flu negative although could be an array of viral illnesses
-empiric abx
# History of Advanced dementia/ Aggressive behavior due to dementia
Mild agitation/ confusion noted
Will continue to treat dehydration
CT head no acute findings, diffuse cortical atrophy with nonspecific white matter changes.
Order PT/ OT
� Engaging conversation for hospice due to continued decline in mental status
#Transaminitis
� Probable mild intrahepatic biliary dilation. Increased echogenicity of portal triads, nonspecific finding. No suspicious focal hepatic lesion identified
--MRI Abd w/wo and MRCP - neg
-f/u outpt
# Incidental finding by cervical CT: 1.5 cm low-attenuation/cystic lesion in the left lobe of the thyroid. Elective Tyroid Ultrasound could be obtained for more complete evaluation as OP. Normal calcium level, no neck tenderness on exam.
-TSH WNL
-f/u outpt
#Hypokalemia
-monitor and replete
# Overactive bladder
-Stop oxybutynin with confusion
- Vesicare
Full code
DVT prophylaxis�heparin
Regular diet
Goals of care conversation, hospice appropriate
Total time spent on today's encounter was 55 minutes which included time spent in counseling the patient/family regarding diagnosis and treatment plan as listed above, goals of care, and symptom management. Case was discussed with nursing staff,
specialists, and care coordinators/case management. All labs and imaging personally reviewed by me. Remainder the time spent in detailed review of previous records, lab data, imaging, and other medical provider documentation.
Anticipated Discharge: > 48 hours
Subjective/Interval History
-
Date of Service: March 29, 2024
spiked temp
Objective Data
-
Labs:
Laboratory Results
03/29/24
06:32
WBC 10.4
Hgb 13.3
Hct 38.7
Plt Count 262
Sodium 143
Potassium 4.1
Chloride 106
Carbon Dioxide 26
BUN 19 H
Creatinine 0.6
Glucose 129 H
Calcium 9.1
Total Bilirubin 1.2
AST 26
ALT 21
Alkaline Phosphatase 117
Vital Signs:
Vital Signs
Temp Pulse Resp BP Pulse Ox
98.0 F 105 18 149/82 97
03/29/24 11:04 03/29/24 11:08 03/29/24 11:04 03/29/24 11:08 03/29/24 11:04
I&O
03/28/24 03/29/24 03/30/24
06:59 06:59 06:59
Intake Total 240 / 240 220 / 220
Balance 240 / 240 220 / 220
Review of Systems
-
History Source: Patient
All other systems: Not reviewed unless documented
Data Reviewed
-
CT Scan: Report Reviewed by me
Ultrasound: Report Reviewed by me
MRI: Report Reviewed by me
Labs: Labs Reviewed by me
--- NOTE | 2024-03-29 14:30 | HOSPNOTE ---
Met with spouse and he is in agreement with hospice and the philosophy. The plan is for patient to go to [facility] with hospice services. OOH DNR needed on chart and transport is needed. Attending and CM aware of plan.
[2024-03-29] MEDS: LR 1000 IV (15:06)
[2024-03-29 15:37] VITALS: BP 135/82
[2024-03-29 20:37] VITALS: BP 156/106
[2024-03-29 23:41] VITALS: BP 145/85
[2024-03-30 03:38] VITALS: BP 143/87
[2024-03-30 06:32] LABS: Hematocrit 40.2 % (37.0-47.0); Hemoglobin 13.2 g/dL (12.0-16.0); Mean Corp Hgb Conc. 32.8 g/dL (33.0-37.0); Mean Corpuscular Volume 88.4 fL (81.0-99.0); Mean Platelet Volume 10.2 fL (7.4-10.4); Platelet Count 313 10^3/uL (130-400); Red Blood Cell Count 4.55 10^6/uL (4.20-5.40); White Blood Cell Count 10.7 10^3/uL (4.8-10.8)
[2024-03-30 06:59] LABS: ALT (SGPT) 21 U/L (0-35); AST (SGOT) 29 U/L (14-36); Albumin 3.4 g/dl (3.5-5.0); Alkaline Phosphatase 117 U/L (38-126); Blood Urea Nitrogen 17 mg/dl (7-17); Calcium 8.9 mg/dl (8.4-10.2); Carbon Dioxide 24 mmol/L (22-30); Chloride 104 mmol/L (98-107); Estimated Creatinine Clearance 56 ml/min; Glucose 126 mg/dl (70-99); Potassium 4.1 mmol/L (3.5-5.1); Sodium 141 mmol/L (135-145); Total Bilirubin 1.3 mg/dl (0.2-1.3); eGFR > 60.00
[2024-03-30 07:15] VITALS: BP 141/97
[2024-03-30] MEDS: THERAGRAN 1 TABLET PO (08:44)
[2024-03-30] MEDS: HEPARIN 5000 UNITS SC (08:44)
[2024-03-30] MEDS: NORVASC 5 MG PO (08:44)
[2024-03-30] MEDS: DESENEX/MITRAZOL/ZEASORB 1 APPLIC TOPICAL (08:45)
--- NOTE | 2024-03-30 09:33 | CM ---
Plan: Discharge to [facility] with Hospice via ambulance pickle solution maker, scheduled for 1145
IMM completed
Needs OOH DNR signed.
[place]
Report #[id number]
[2024-03-30 11:00] VITALS: BP 137/83
--- NOTE | 2024-03-30 12:25 | W.PN.HOSP.TC ---
Addendum entered and electronically signed by Cornelius Berg MD 03/30/24 15:41:
[id number]
Original Note:
Today's Communication/Plan
-
DC to Hospice
Can continue abx course
Assessment / Plan
Assessment / Plan
Physical Exam
General: Well Developed, Well Nourished and No Apparent Distress
HEENT: NormoCephalic, Moist mucous membranes and Atraumatic
Respiratory: Clear
Cardiac: S1/S2 and Regular Rhythm; No Murmur or Rub
GI: Soft, Non Tender, Non Distended and Normal Bowel Sounds; No Organomegaly
Rectal: Deferred by Provider
Musculoskeletal: No Clubbing, No Cyanosis and No Edema
Skin: No Rash
Neuro: Nonfocal/grossly intact
# Acute on Chronic Metabolic encephalopathy
-appears to be worsening dementia over quite some type - not new
-f/u ruq sono : Probable mild intrahepatic biliary dilation. Increased echogenicity of portal triads, nonspecific finding. No suspicious focal hepatic lesion identified
-R/o infection
-MRI Abd w/wo and MRCP - neg for acute pathology
-MRI brain negative for acute pathology
-no evidence of UTI
-Stop Oxybutynin - can cause confusion
- No leukocytosis
- No fevers.
- Negative COVID & Flu screen.
-can complete abx course for now although doubt infectious source
- Normal renal function.
-TSH WNL
#Febrile episode
-no obvious source
�Follow-up blood cultures, urine
� I suspect this is secondary to aspiration versus viral illness
� SARS-CoV-2, flu negative although could be an array of viral illnesses
-empiric abx
# History of Advanced dementia/ Aggressive behavior due to dementia
Mild agitation/ confusion noted
Will continue to treat dehydration
CT head no acute findings, diffuse cortical atrophy with nonspecific white matter changes.
Order PT/ OT
� Engaging conversation for hospice due to continued decline in mental status
#Transaminitis
� Probable mild intrahepatic biliary dilation. Increased echogenicity of portal triads, nonspecific finding. No suspicious focal hepatic lesion identified
--MRI Abd w/wo and MRCP - neg
-f/u outpt
# Incidental finding by cervical CT: 1.5 cm low-attenuation/cystic lesion in the left lobe of the thyroid. Elective Tyroid Ultrasound could be obtained for more complete evaluation as OP. Normal calcium level, no neck tenderness on exam.
-TSH WNL
-f/u outpt
#Hypokalemia
-monitor and replete
# Overactive bladder
-Stop oxybutynin with confusion
- Vesicare
Full code
DVT prophylaxis�heparin
Regular diet
Goals of care conversation, hospice appropriate; Dispo: Hospice; can continue abx course
More than 30 minutes spent in discharge including
Final examination of the patient
Summarizing hospital stay
Instructions for continuing care to all relevant caregivers
Preparation of discharge records, prescriptions, and referral forms
Total time spent (36 in minutes):
Anticipated Discharge: Today
Subjective/Interval History
-
Date of Service: March 30, 2024
No acute events
Objective Data
-
Labs:
Laboratory Results
03/30/24
05:41
WBC 10.7
Hgb 13.2
Hct 40.2
Plt Count 313
Sodium 141
Potassium 4.1
Chloride 104
Carbon Dioxide 24
BUN 17
Creatinine 0.6
Glucose 126 H
Calcium 8.9
Total Bilirubin 1.3
AST 29
ALT 21
Alkaline Phosphatase 117
Vital Signs:
Vital Signs
Temp Pulse Resp BP Pulse Ox
98.6 F 124 16 141/97 94
03/30/24 07:15 03/30/24 07:15 03/30/24 07:15 03/30/24 07:15 03/30/24 07:15
I&O
03/29/24 03/30/24 03/31/24
06:59 06:59 06:59
Intake Total 220 / 220 810 / 810
Balance 220 / 220 810 / 810
Review of Systems
-
History Source: Patient
All other systems: Not reviewed unless documented
Data Reviewed
-
CT Scan: Report Reviewed by me
Ultrasound: Report Reviewed by me
MRI: Report Reviewed by me
Labs: Labs Reviewed by me
--- NOTE | 2024-03-30 12:48 | W.DS.TRANS ---
DC Summary - Screening Specialist
-
Discharge Instructions:
Discharge Diagnosis/Procedures favor increased fluid/salt intake.
worsening dementia
Diet As tolerated
Activity As tolerated
Blood Work LFTS if desired by pcp in 1 week
Instructions:
Stand-Alone Forms:
Changes to Home Medications: Yes
Discharge Medications:
DC Medications w/original date entered in [facility]
omega 0-odc-lbh-fish oil 1,000 mg (120 mg-180 mg) capsule (Fish Oil) 1 cap PO DAILY Supplement 03/24/24
solifenacin 5 mg tablet (Vesicare) 5 mg PO DAILY Urinary Issue 03/24/24
therapeutic multivitamin 1 tab PO DAILY Supplement 03/24/24
miconazole nitrate 2 % topical powder (Miconazorb AF) 1 applic topical BID #0 grams 03/28/24
levofloxacin 750 mg tablet 750 mg PO DAILY 6 days #6 tabs 03/30/24
Home Medication Changes
miconazole nitrate 2 % topical powder (Miconazorb AF) 1 applic topical BID #0 grams 03/28/24
levofloxacin 750 mg tablet 750 mg PO DAILY 6 days #6 tabs 03/30/24
Pending Results: No
[2024-03-30 15:43] LABS: Syphilis/T. pallidum Ab Reflex Negative (Negative)
== END 2024-03-30 11:53 | DRG 884 ==
LOC: 3 WEST ACU 14:52
PROVIDERS: Internal Medicine; Nurse Practitioner Gerontology; Physician Assistant; ADMITTING PHYSICIAN Hospitalist; ATTENDING PHYSICIAN Internal Medicine; EMERGENCY PHYSICIAN Student in an Organized Health Care Education/Training Program; FAMILY PHYSICIAN Family Medicine
DX: F03.C11 Unspecified dementia, severe, with agitation (principal); G93.41 Metabolic encephalopathy; R53.1 Weakness; I10 Essential (primary) hypertension; N32.81 Overactive bladder; R74.01 Elevation of levels of liver transaminase levels; E87.6 Hypokalemia; W01.198A Fall on same level from slipping, tripping and stumbling with subsequent striking against other object, initial encounter; Y93.01 Activity, walking, marching and hiking; Y92.008 Other place in unspecified non-institutional (private) residence as the place of occurrence of the external cause; Z11.52 Encounter for screening for COVID-19
CPT/HCPCS: 70450; 70551; 71045; 72125; 74183; 76700; 80048; 80053; 81003; 81015; 82248; 82607; 82746; 84443; 85025; 85027; 86780; 87040; 87086; 87502; 87811; 92610; 93005; 96361; 97162; 97166; 97530; 99285; A9575

== ENCOUNTER → 2024-04-06 11:32 | Outpatient (REF) | payer BC, SELFPAY ==
[2024-04-06 13:10] LABS: ALT (SGPT) 45 U/L (0-35); AST (SGOT) 40 U/L (14-36); Albumin 3.6 g/dl (3.5-5.0); Alkaline Phosphatase 111 U/L (38-126); Direct Bilirubin 0.5 mg/dl (0.0-0.4); Total Bilirubin 1.2 mg/dl (0.2-1.3); Total Protein 6.5 g/dl (6.3-8.2)
== END ==
LOC: OLABP 11:32
PROVIDERS: ATTENDING PHYSICIAN Family Medicine
DX: G93.41 Metabolic encephalopathy (principal); F03.90 Unspecified dementia, unspecified severity, without behavioral disturbance, psychotic disturbance, mood disturbance, and anxiety; R74.01 Elevation of levels of liver transaminase levels
CPT/HCPCS: 36415; 80076